=== PATIENT | female | born 1985 | race Caucasian/White ===

== ENCOUNTER 2017-08-01 05:40 | Day surgery (SDC) | payer BC, OTHER ==
[~2017-08-01] VITALS: Ht 165.1 cm; Wt 86.2 kg
[2017-08-01 05:55] VITALS: BP 129/67
[2017-08-01] MEDS ORDERED: MOTRIN600 MG PO (08:30)
[2017-08-01] MEDS ORDERED: NORCO 5/3251 TABLET PO (08:30)
[2017-08-01 09:50] VITALS: BP 149/98
[2017-08-01 10:30] VITALS: BP 139/86
== END 2017-08-01 10:30 | disposition home or self-care (01) ==
LOC: SDC 05:40
DX: N84.0 Polyp of corpus uteri (principal); N92.0 Excessive and frequent menstruation with regular cycle; N94.6 Dysmenorrhea, unspecified; E28.2 Polycystic ovarian syndrome; Z98.51 Tubal ligation status; I10 Essential (primary) hypertension; E55.9 Vitamin D deficiency, unspecified; E73.9 Lactose intolerance, unspecified; F17.200 Nicotine dependence, unspecified, uncomplicated; E66.9 Obesity, unspecified; Z68.32 Body mass index [BMI] 32.0-32.9, adult; Z80.41 Family history of malignant neoplasm of ovary; Z80.49 Family history of malignant neoplasm of other genital organs; Z84.2 Family history of other diseases of the genitourinary system; Z82.49 Family history of ischemic heart disease and other diseases of the circulatory system; Z83.3 Family history of diabetes mellitus; Z83.49 Family history of other endocrine, nutritional and metabolic diseases; Z88.1 Allergy status to other antibiotic agents
CPT/HCPCS: 88305; J1100; J1170; J1885; J2405; J3010